=== PATIENT | male | born 1950 | race Caucasian/White ===

== ENCOUNTER 2016-11-09 15:09 | Emergency (ER) | payer OTHER ==
[2016-11-09] MEDS ORDERED: HYDROCODONE/APAP 5/325 TAB PO ONE (15:37)
--- NOTE | 2016-11-09 15:39 | EDPHY ---
H & P Stated Complaint: L wrist injury 2 d ago - slip/FOOSH on ice Time Seen by Provider: 11/09/16 15:30 HPI/ROS: CHIEF COMPLAINT: Left wrist pain HISTORY OF PRESENT ILLNESS: The patient is a 66-year-old healthy man who tripped and fell 48 hours ago. He landed on his left wrist out stretch. He skinned his left knee and spilled hot coffee on his face. He states that none of these things are bothering him other than this pain and swelling in his left wrist. He has not sought care prior to now. He has swelling and bruising at the area. Normal sensation and range of motion. REVIEW OF SYSTEMS: Constitutional: denies: chills, fever, recent illness, recent injury EENTM: denies: blurred vision, double vision, nose congestion Respiratory: denies: cough, shortness of breath Cardiac: denies: chest pain, irregular heart rate, lightheadedness, palpitations Gastrointestinal/Abdominal: denies: abdominal pain, diarrhea, nausea, vomiting, blood streaked stools Genitourinary: denies: dysuria, frequency, hematuria, pain Musculoskeletal: See HPI Skin: denies: lesions, rash, jaundice, bruising Neurological: denies: headache, numbness, paresthesia, tingling, dizziness, weakness Hematologic/Lymphatic: denies: blood clots, easy bleeding, easy bruising Immunologic/allergic: denies: HIV/AIDS, transplant EXAM: GENERAL: Well-appearing, well-nourished and in no acute distress. HEAD: Atraumatic, normocephalic. EYES: Pupils equal round and reactive to light, extraocular movements intact, sclera anicteric, conjunctiva are normal. ENT: TMs normal, nares patent, oropharynx clear without exudates. Moist mucous membranes. NECK: Normal range of motion, supple without lymphadenopathy or JVD. LUNGS: Breath sounds clear to auscultation bilaterally and equal. No wheezes rales or rhonchi. HEART: Regular rate and rhythm without murmurs, rubs or gallops. ABDOMEN: Soft, nontender, normoactive bowel sounds. No guarding, no rebound. No masses appreciated. BACK: No CVA tenderness, no spinal tenderness, step-offs or deformities EXTREMITIES: Abrasion to left knee, dressed, pain, bruising and swelling to left wrist. Normal range of motion, normal hand telecommunication tower technician, normal capillary refill and pulses. Normal sensation. NEUROLOGICAL: Cranial nerves II through XII grossly intact. Normal speech, normal gait. 5/5 strength, normal movement in all extremities, normal sensation PSYCH: Normal mood, normal affect. SKIN: Warm, dry, normal turgor, no visible rashes or lesions. Source: Patient Exam Limitations: No limitations - Personal History Current Tetanus/Diphtheria Vaccine: Unsure Current Tetanus Diphtheria and Acellular Pertussis (TDAP): Unsure - Medical/Surgical History Hx Asthma: No Hx Chronic Respiratory Disease: No Hx Diabetes: No Hx Cardiac Disease: Yes Hx Renal Disease: No Hx Cirrhosis: No Hx Alcoholism: No Hx HIV/AIDS: No Hx Splenectomy or Spleen Trauma: No Other PMH: cardiac stent, pacemaker, knee surgeries, macular degeneration, WASHOE, HTN - Family History Significant Family History: No pertinent family hx - Social History Smoking Status: Never smoked Alcohol Use: Sober Drug Use: None Constitutional: Initial Vital Signs Temperature (C) 36.2 C 11/09/16 15:11 Heart Rate 91 11/09/16 15:11 Respiratory Rate 16 11/09/16 15:11 Blood Pressure 152/96 H 11/09/16 15:11 O2 Sat (%) 94 11/09/16 15:11 O2 Delivery Mode Room Air Allergies/Adverse Reactions: No Allergies [NKDA] Allergy (Verified 11/09/16 15:10) Home Medications: Medication Instructions Recorded Aspirin [Aspirin 325 mg (*)] 325 mg PO HS 07/13/15 Lisinopril [Zestril 5 mg (*)] 5 mg PO HS 07/13/15 Multivitamins [Multivitamin (*)] 1 each PO DAILY 07/13/15 [place]-3 Fatty Acids [Fish Oil 1000 1,000 mg PO DAILY 07/13/15 mg (*)] Venlafaxine HCl [Venlafaxine 75MG 75 mg PO HS 07/13/15 (*)] Atorvastatin Calcium [Lipitor 40 40 mg PO DAILY #0 tab 07/15/15 mg (*)] Hydrocodone/APAP 5/325 [[place] 1 - 2 each PO Q4 PRN #14 tab 11/09/16 5/325] Medical Decision Making Procedures: Procedure: Splint placement. A sugar-tong splint was applied. After application of the splint I returned and re-examined the patient. The splint was adequately immobilizing the joint and distal to the splint the patient's circulation and sensation was intact. ED Course/Re-evaluation: We discussed the patient's x-ray results. He is placed in a sugar-tong splint. He tolerated this well. I will have him follow up with his orthopedist Dr. Justice. He request [place] for pain control. He declines further workup or testing at this time. Additional verbal discharge instructions given. Differential Diagnosis: Partial list of the Differential diagnosis considered include but were not limited to; wrist fracture, contusion, sprain, abrasion, burn and although unlikely based on the history and physical exam, I also considered head injury, neck injury, vascular injury. I discussed these differential diagnoses and the plan with the patient as well as the usual and expected course. The patient understands that the diagnosis is provisional and that in medicine we are not always correct and that further workup is often warranted. Usual and customary warnings were given. All of the patient's questions were answered. The patient was instructed to return to the emergency department should the symptoms at all worsen or return, otherwise to followup with the physician as we discussed. - Data Points Medications Given: Discontinued Medications Acetaminophen/Hydrocodone Bitart ([place] 5/325) 2 tab PO EDNOW ONE Stop: 11/09/16 15:38 Last Admin: 11/09/16 15:43 Dose: 2 tab Departure - Departure Disposition: Home, Routine, Self-Care Clinical Impression: Colles' fracture of left radius Qualifiers: Encounter type: initial encounter Fracture type: closed Qualifier Code: ( S52.532A) Colles' fracture of left radius, initial encounter for closed fracture Condition: Fair Instructions: Wrist Fracture in Adults (ED) Referrals: Alexander Benitez MD [Primary Care Provider] - As per Instructions Ginger Varela MD [Medical Doctor] - As per Instructions Prescriptions: Hydrocodone/APAP 5/325 [[place] 5/325] 1 - 2 each PO Q4 PRN #14 tab PRN Reason: Pain, Mild
--- NOTE | 2016-11-09 16:09 | DX ---
Left Wrist Series, 4 views dated November 09, 2016 15:43 Indication: Pain. Fall. Findings: An acute distal radius fracture consists of a transverse plane coursing through the meta physis and a vertically oriented plane extending to the articular surface along the ulnar margin of t he distal radius. The distal fracture fragments are not displaced or angulated. A transverse fracture courses through the base of the ulna styloid. The ulna styloid is distracted 1 mm from the donor sit e. Carpal bones are intact with benign degenerative cysts in the navicular bone. Impression: 1. Acute nondisplaced intra-articular distal radius fracture. 2. Minimally displaced acute ulna styloid fracture
[2016-11-09 17:08] VITALS: BP 162/99; PULSE 75; RESP 15; TEMP 98.8; O2SAT 92
== END 2016-11-09 17:08 | disposition home or self-care (01) ==
DX: S52.532A Colles' fracture of left radius, initial encounter for closed fracture (principal); I10 Essential (primary) hypertension; Z95.0 Presence of cardiac pacemaker; Z95.5 Presence of coronary angioplasty implant and graft; Z79.82 Long term (current) use of aspirin; W01.0XXA Fall on same level from slipping, tripping and stumbling without subsequent striking against object, initial encounter
CPT/HCPCS: 73110; 99283; A4565

== ENCOUNTER → 2017-04-08 | Outpatient (CLI) | payer OTHER | LOC: BHFA 15:15 | PROVIDERS: ATTEND Internal Medicine Interventional Cardiology | DX: I47.2 Ventricular tachycardia (principal); I25.10 Atherosclerotic heart disease of native coronary artery without angina pectoris; I10 Essential (primary) hypertension; Z95.810 Presence of automatic (implantable) cardiac defibrillator ==